=== PATIENT | male | born 1960 | race Caucasian/White ===

== ENCOUNTER 2024-05-04 11:25 | Day surgery (SDC) | payer MEDICARE ==
[2024-05-04] MEDS ORDERED: DIPRIVAN 200 MG/20 ML IV ONE (13:54)
--- NOTE | 2024-05-04 15:26 | XRAY ---
Indication: Bilateral L4-S1 MBB. Intraoperative fluoroscopy provided for 9 seconds. Single digital spot image submitted for interpretation demonstrates posterior needle tips projecting over the expected left and right L4-S1 nerve roots. Correlate with intraoperative findings/report.
[2024-05-04] MEDS ORDERED: Lactated Ringers 1,000 ML IV ONE (15:29)
--- NOTE | 2024-05-04 16:51 | XRAY ---
9 seconds of fluoroscopy was used in surgery for a bilateral L4-S1 MBB.
== END 2024-05-04 14:26 | disposition home or self-care (01) ==
LOC: SDC-PAIN 11:25
PROVIDERS: ATTEND Psychiatry & Neurology Pain Medicine
DX: M47.816 Spondylosis without myelopathy or radiculopathy, lumbar region (principal)
CPT/HCPCS: 64493; 64494; 72020; 77002; J2704

== ENCOUNTER 2024-06-01 13:16 | Day surgery (SDC) | payer MEDICARE ==
[2024-06-01] MEDS ORDERED: Xylocaine-Mpf 2% 5 Ml Vial IJ ONE (13:17)
[2024-06-01] MEDS ORDERED: Depo-Medrol 40 MG/ML IM ONE (13:17)
[2024-06-01] MEDS ORDERED: Lactated Ringers 1,000 ML IV ONE (15:13)
[2024-06-01] MEDS ORDERED: DIPRIVAN 200 MG/20 ML IV ONE (15:46)
--- NOTE | 2024-06-01 16:29 | XRAY ---
Indication: Bilateral L4-S1 MBB. Intraoperative fluoroscopy provided for 15 seconds. Single digital spot image submitted for interpretation demonstrates posterior needle tips projecting over the expected left and right L4-S1 nerve roots. Correlate with intraoperative findings/report.
--- NOTE | 2024-06-02 08:52 | XRAY ---
15 seconds of fluoroscopy was used in surgery for a bilateral L4-S1 MBB.
== END 2024-06-01 16:05 | disposition home or self-care (01) ==
LOC: SDC-PAIN 13:16
PROVIDERS: ATTEND Psychiatry & Neurology Pain Medicine
DX: M47.816 Spondylosis without myelopathy or radiculopathy, lumbar region (principal)
CPT/HCPCS: 64493; 64494; 72020; 77002; J2704

== ENCOUNTER 2024-07-06 14:05 | Day surgery (SDC) | payer MEDICARE ==
[2024-07-06] MEDS ORDERED: BUPIVACAINE 0.5% VIAL IJ ONE (14:06)
[2024-07-06] MEDS ORDERED: LIDOCAINE HCL 1% 50 MG/5 ML VL PF IJ ONE (14:06)
[2024-07-06] MEDS ORDERED: Depo-Medrol 40 MG/ML IM ONE (14:06)
[2024-07-06] MEDS ORDERED: DIPRIVAN 200 MG/20 ML IV ONE (15:11)
[2024-07-06] MEDS ORDERED: Lactated Ringers 1,000 ML IV ONE (15:38)
--- NOTE | 2024-07-06 16:45 | XRAY ---
Indication: Right L4-S1 RFA. Intraoperative fluoroscopy provided for 15 seconds. 5 digital spot images submitted for interpretation demonstrates posterior needle tips projecting over the expected right L4-S1 nerve roots. Correlate with intraoperative findings/report.
--- NOTE | 2024-07-06 17:09 | XRAY ---
15 seconds of fluoroscopy was used in surgery for a right L4-S1 RFA.
== END 2024-07-06 15:33 | disposition home or self-care (01) ==
LOC: SDC-PAIN 14:05
PROVIDERS: ATTEND Psychiatry & Neurology Pain Medicine
DX: M47.816 Spondylosis without myelopathy or radiculopathy, lumbar region (principal); M47.817 Spondylosis without myelopathy or radiculopathy, lumbosacral region
CPT/HCPCS: 64635; 64636; 72100; 77002; J2001; J2704

== ENCOUNTER 2024-07-07 12:33 | Day surgery (SDC) | payer MEDICARE ==
[2024-07-07] MEDS ORDERED: LIDOCAINE HCL 1% 50 MG/5 ML VL PF IJ ONE (12:34)
[2024-07-07] MEDS ORDERED: Depo-Medrol 40 MG/ML IM ONE (12:34)
[2024-07-07] MEDS ORDERED: BUPIVACAINE 0.5% VIAL IJ ONE (12:34)
[2024-07-07] MEDS ORDERED: Lactated Ringers 1,000 ML IV ONE (15:13)
[2024-07-07] MEDS ORDERED: DIPRIVAN 200 MG/20 ML IV ONE (15:18)
--- NOTE | 2024-07-07 16:54 | XRAY ---
Indication: Left L4-S1 RFA. Intraoperative fluoroscopy provided for 30 seconds. 5 digital spot image submitted for interpretation demonstrates posterior needle tips projecting over the expected left L4-S1 nerve roots. Correlate with intraoperative findings/report.
--- NOTE | 2024-07-07 17:32 | XRAY ---
30 seconds of fluoroscopy was used in surgery for a left L4-S1 RFA.
== END 2024-07-07 15:58 | disposition home or self-care (01) ==
LOC: SDC-PAIN 12:33
PROVIDERS: ATTEND Psychiatry & Neurology Pain Medicine
DX: M47.817 Spondylosis without myelopathy or radiculopathy, lumbosacral region (principal)
CPT/HCPCS: 64635; 64636; 72100; 77002; J2001; J2704